=== PATIENT | female | born 1970 | race Caucasian/White ===

== ENCOUNTER 2018-01-05 09:31 | Emergency (ER) | payer BC ==
[2018-01-05] MEDS ORDERED: NORCO 5/325 MG (10:52)
[2018-01-05 10:53] LABS: Uric Acid 4.9 mg/dL (2.6-6.0)
[2018-01-05] MEDS: NORCO 5/325 MG PO (10:54)
== END 2018-01-05 12:18 | disposition home or self-care (01) ==
LOC: ED 09:31
CPT/HCPCS: 36415; 73562; 84550

== ENCOUNTER 2018-09-04 05:53 | Day surgery (SDC) | payer BC ==
[2018-09-04] MEDS ORDERED: DIPRIVAN 200 MG/20 ML IV ONE (05:54)
[2018-09-04] MEDS ORDERED: Lactated Ringers 1,000 ML IV SCH (06:30)
[2018-09-04 08:00] VITALS: O2SAT 97
[2018-09-04 08:13] VITALS: BP 108/60; PULSE 87
--- NOTE | 2018-09-04 08:45 | OP ---
SURGERY DATE/TIME: 09/04/2018 0700 PREOPERATIVE DIAGNOSIS: Father with colon cancer. POSTOPERATIVE DIAGNOSIS: Normal colon. PROCEDURE: Colonoscopy. SURGEON: Dr. Gomez. ANESTHESIA: MAC. Medications given by anesthesia department. HISTORY: The patient is a 48 year-old white female presenting now for colonoscopic evaluation. She reports that her father had colon cancer and of it in his early 60's and she also had a brother with colon polyps. The patient was felt the need to have endoscopic evaluation. She was appraised of the risks of the procedure including the risk of perforation, phlebitis, untoward reaction to medication, bleeding and missed lesions. The patient verbalized her understanding and desired to have the procedure performed. DESCRIPTION OF PROCEDURE: The patient was given the medications by the anesthesia department. She had continuous pulse oximetry, ECG monitoring, intermittent blood pressure monitoring and tidal CO2 monitoring during the examination. She was placed in the left lateral decubitus position. A digital rectal examination was performed and revealed normal anal sphincter tone and no masses. The flexible Olympus pediatric colonoscope was used to intubate the rectum. A view of the colon was developed sequentially to the cecum. Upon insertion and withdrawal, including a retroflex view in the rectum, no mucosal lesions were encountered. The scope was removed from the patient who tolerated the procedure well and was sent back to OP recovery in good condition. The prep was noted to be fair.
== END 2018-09-04 08:21 | disposition home or self-care (01) ==
LOC: SDC 05:53
PROVIDERS: ATTEND Family Medicine
DX: Z12.11 Encounter for screening for malignant neoplasm of colon (principal); Z80.0 Family history of malignant neoplasm of digestive organs; Z83.71 Family history of colonic polyps
CPT/HCPCS: J2704

== ENCOUNTER 2019-02-16 03:19 | Emergency (ER) | payer BC ==
--- NOTE | 2019-02-16 03:47 | ERPHSYRPT ---
- History of Present Illness Source: patient Exam Limitations: clinical condition Patient Subjective Stated Complaint: pt states, "I've had this back pain since Friday but it's getting worse and everytime I use my right side, it takes my breath." Triage Nursing Assessment: pt ambulated to rm 7, alert and oriented x3, cooperative. Pt c/o mid back pain on rt side, had this pain since Friday but it has gotten worse, to the point that it takes her breath. Pt states the pain radiates up and down her back. Pt does not remember doing anything to cause the pain. No bruising or edema noted to back. Lungs clear, heart tones reg, abd soft with active bs x4 quad, nontender. Timing/Duration: yesterday Method of Injury: unknown, other (slept with grandchild and woke with back pain) Quality: sharp, aching Back Pain Location: T-spine Severity of Pain-Max: severe Severity of Pain-Current: severe (Pt rates her pain a 9/10 pain) Modifying Factors: Improves With: movement (worsens with sitting forward) Associated Symptoms: muscle spasms, other (ith sitting up from a reclned position.) Previous symptoms: no prior history Hx Tetanus, Diphtheria Vaccination/Date Given: Yes Hx Influenza Vaccination/Date Given: No Hx Pneumococcal Vaccination/Date Given: No Immunizations Up to Date: Yes <ASAEL (ISIDRA Sierra)FARHANA - Last Filed: 02/16/19 07:18> <BOOM HARRISON - Last Filed: 02/16/19 07:54> - History of Present Illness Time Seen by Provider: 02/16/19 03:45 Physician History: Pt comes in with right midlateral right low thoracic back pain. Pt states that the pain has worsened when her grandchild slept in her bed and she slept holding the child and woke with back pain.Pt reporth the pain to be in the right flank. Pt rates the pain at a 9/10. Pt has no history of this same pain. (ASAEL (ISIDRA Y)FARHANA) Allergies/Adverse Reactions: Penicillins Allergy (Mild, Verified 09/04/18 06:04) Hives Home Medications: Atenolol 50 mg [Tenormin 50 mg] 50 mg PO DAILY 10/31/13 [History] Levothyroxine Sodium 112 Mcg [Synthroid 112 Mcg] 200 mcg PO DAILY 10/31/13 [History] Fluoxetine HCl [Prozac] 20 mg PO HS 04/26/15 [History] Pantoprazole 20 mg [Protonix 20MG Tablet] 40 mg PO DAILY 12/26/15 [History ] Liothyronine Sodium 10 mcg PO DAILY 09/02/18 [History] Warfarin Sodium [Jantoven] 8.5 mg PO DIRECTIONS UNKNOWN 09/02/18 [History] Gabapentin 100 mg PO HS 02/16/19 [History] - Review of Systems Constitutional: No Symptoms Eyes: No Symptoms Ears, Nose, & Throat: No Symptoms Respiratory: No Symptoms, Other (some worsening of pain on deep respiration) Cardiac: No Symptoms Abdominal/Gastrointestinal: No Symptoms Genitourinary Symptoms: No Symptoms Musculoskeletal: Back Pain, Myalgias Skin: No Rash, No Skin Lesions Neurological: No Symptoms, Headache, No Parasthesia Psychological: No Symptoms All Other Systems: Reviewed and Negative <ASAEL SANTOS Sierra)FARHANA - Last Filed: 02/16/19 07:18> - Past Medical History Pertinent Past Medical History: Yes Neurological History: Other ENT History: No Pertinent History Cardiac History: Hypertension Respiratory History: Sleep Apnea Endocrine Medical History: Other Musculoskeletal History: No Pertinent History GI Medical History: Gallbladder Disease History: Renal Disease, Other Psycho-Social History: Anxiety, Depression Other Medical History: numbness along R bunionectomy scar, thyroid CA with removal, mitral valve replacement 3 years ago. - Past Surgical History Past Surgical History: Yes Neuro Surgical History: No Pertinent History Cardiac: CABG, Other Respiratory: No Pertinent History Gastrointestinal: Cholecystectomy Genitourinary: Other Musculoskeletal: Orthopedic Surgery Female Surgical History: Section, Tubal Ligation Other Surgical History: valve replaced,kidney surgery,thyroid removed 2012 , sinus surgery, foot surgery-bunionectomy and ankle bone removed right foot , three yrs ago aortic valve replaced - Social History Smoking Status: Former smoker Exposure to second hand smoke: No Alcohol Use: None Drug Use: none Patient Lives Alone: No Significant Family History: no pertinent family hx - Female History Hx Last Menstrual Period: tubal and IUD Hx Now: No <[facility]EL SANTOS [facility] Becerra - Last Filed: 02/16/19 07:18> - Physical Exam General Appearance: no apparent distress, alert, obese Eye Exam: PERRL/EOMI Ears, Nose, Throat Exam: normal ENT inspection Neck Exam: normal inspection Respiratory Exam: normal breath sounds Cardiovascular Exam: regular rate/rhythm Gastrointestinal Exam: soft, normal bowel sounds, No tenderness Rectal Exam: not done Back Exam: normal inspection, CVA tenderness, decreased range of motion, muscle spasm, point tenderness, other (with sitting forward) Neurologic Exam: alert, oriented x 3, cooperative, sensation nml, No motor deficits, No confusion Skin Exam: normal color, warm, dry, No rash Lymphatic Exam: No adenopathy SpO2: 99 <ASAEL (ED PHY)FARHANA - Last Filed: 02/16/19 07:18> - Nursing Vital Signs Nursing Vital Signs: Initial Vital Signs Temperature 97.5 F 02/16/19 03:28 Pulse Rate 79 02/16/19 03:28 Respiratory Rate 18 02/16/19 03:28 Blood Pressure 116/83 02/16/19 03:28 O2 Sat by Pulse Oximetry 99 02/16/19 03:28 Pain Scale Pain Intensity [Right Back] 9 Pain Intensity 0 <ASAEL (ED PHY)FARHANA - Last Filed: 02/16/19 07:18> <BOOM HARRISON - Last Filed: 02/16/19 07:54> Ordered Tests: Active Orders 24 hr Category Date Time Status ABDOMEN AND PELVIS W/0 CONTRAS [CT] Stat Exams 02/16/19 05:53 Taken THORACIC SPINE (AP,LAT,SWIMM) Stat Exams 02/16/19 04:01 Taken CULTURE,URINE Stat Lab 02/16/19 05:19 Received UA W/RFX UR CULTURE Stat Lab 02/16/19 05:19 Completed Medication Summary Discontinued Medications Generic Name Dose Route Start Last Admin Trade Name Freq PRN Reason Stop Dose Admin Ketorolac Tromethamine 60 mg 02/16/19 03:53 02/16/19 04:01 Toradol 30 Mg Injection IM 02/16/19 03:54 60 mg STAT ONE Administration Ketorolac Tromethamine Confirm 02/16/19 03:58 Toradol 30 Mg Injection Administered 02/16/19 03:59 Dose 30 mg .ROUTE .STK-MED ONE Ketorolac Tromethamine Confirm 02/16/19 04:03 Toradol 30 Mg Injection Administered 02/16/19 04:04 Dose 30 mg .ROUTE .STK-MED ONE Orphenadrine Citrate 60 mg 02/16/19 03:54 02/16/19 04:02 Norflex 60 Mg/2 Ml IM 02/16/19 03:55 60 mg STAT ONE Administration Orphenadrine Citrate Confirm 02/16/19 03:58 Norflex 60 Mg/2 Ml Administered 02/16/19 03:59 Dose 60 mg .ROUTE .STK-MED ONE Lab/Rad Data: Laboratory Results 02/16/19 Range/Units 05:19 Urine Color YELLOW (YELLOW) Urine Appearance SLIGHTLY CLOUDY (CLEAR) Urine pH 5.0 (5-6) Ur Specific [place] 1.027 (1.005-1.025) Urine Protein NEGATIVE (Negative) Urine Ketones NEGATIVE (NEGATIVE) Urine Blood MODERATE (0-5) [place]/ul Urine Nitrite NEGATIVE (NEGATIVE) Urine Bilirubin NEGATIVE (NEGATIVE) Urine Urobilinogen NEGATIVE (0-1) mg/dL Ur Leukocyte Esterase NEGATIVE (NEGATIVE) Urine WBC (Auto) 3-5 (0-5) /HPF Urine RBC (Auto) 16-25 (0-2) /HPF U Epithel Cells (Auto) RARE (FEW) /HPF Urine Bacteria (Auto) FEW (NEGATIVE) /HPF Urine Mucus (Auto) SLIGHT (NEGATIVE) /HPF Urine Yeast (Budding) Rare (NEGATIVE) /HPF Urine Culture Reflexed YES (NO) Urine Glucose NEGATIVE (NEGATIVE) mg/dL - Progress Progress: improved <ASAEL (ED PHY)FARHANA - Last Filed: 02/16/19 07:18> - Progress Counseled pt/family regarding: lab results, diagnosis, need for follow-up, rad results <BOOM HARRISON - Last Filed: 02/16/19 07:54> - Progress Progress Note: 02/16/19 05:25 Pt's pain has improved froma a 9/10 to a 6/10 currently. mild right CVA tenderness that improved with toradol and norflex. Urine is negative on urinalysis except for + for blood. 02/16/19 05:47 (ASAEL (ED PHY)FARHANA) 02/16/19 07:49 ct abd/pelvis-enlarging right hepatic lobe lesion. d/w pt. (BOOM HARRISON) - Departure Critical Care Time: No <ASAEL (ED PHY)FARHANA - Last Filed: 02/16/19 07:18> - Departure Departure Disposition: Home Critical Care Time: No <BOOM HARRISON - Last Filed: 02/16/19 07:54> - Departure Clinical Impression: Thoracic back pain, Scoliosis, Liver lesion, right lobe Condition: Stable Referrals: GURVINDER PADILLA [Primary Care Provider] - Instructions: Upper Back Pain (DC), Scoliosis (DC) Additional Instructions: Do gentle stretching of your back muscles and normal movements. Do not lift items heavier than 20 lbs. Take the prescriptions given as directed and follow up with your primary care physician. since you are on warfarin, do not fill the toradol prescription. Plan of Treatment: Do gentle stretching of your back muscles and normal movements. Do not lift items heavier than 20 lbs. Take the prescriptions given as directed and follow up with your primary care physician. Prescriptions: Hydrocodone/APAP 5-325 Tab^^^ [[place] 5-325 Tablet^^^] 1 tab PO Q8H PRN PRN #6 tablet MDD 6 PRN Reason: Pain Ketorolac Tromethamine [Toradol] 10 mg PO Q8H PRN PRN #10 tablet PRN Reason: Muscle Spasms Cyclobenzaprine HCl 10 mg [Cyclobenzaprine 10 MG] 10 mg PO TID #10 tablet
[2019-02-16] MEDS ORDERED: TORAdol 30 mg Injection IM ONE (03:53)
[2019-02-16] MEDS ORDERED: Norflex 60 MG/2 ML IM ONE (03:54)
[2019-02-16] MEDS ORDERED: Norflex 60 MG/2 ML ONE (03:58)
[2019-02-16] MEDS ORDERED: TORAdol 30 mg Injection ONE ×2 (03:58→04:03)
[2019-02-16 05:34] LABS: Appearance SLIGHTLY CLOUDY (CLEAR); Bilirubin NEGATIVE (NEGATIVE); Blood MODERATE Ery/ul (0-5); Epithelial Cells RARE /HPF (FEW); Glucose NEGATIVE (NEGATIVE); Ketones NEGATIVE (NEGATIVE); Leukocyte Esterase NEGATIVE (NEGATIVE); Mucus SLIGHT /HPF (NEGATIVE); Nitrite NEGATIVE (NEGATIVE); Protein,Urine Dip NEGATIVE (Negative); Specific Gravity 1.027 (1.005-1.025); Urobilinogen NEGATIVE mg/dL (0-1)
[2019-02-16 05:35] LABS: Bacteria FEW /HPF (NEGATIVE); Budding Yeast Rare /HPF (NEGATIVE)
[2019-02-16] MEDS ORDERED: Hydromorphone 1 mg/ml Ampule IV ONE (07:55)
[2019-02-16] MEDS ORDERED: Hydromorphone 1 mg/ml Ampule ONE (08:00)
[2019-02-16] MEDS ORDERED: Hydromorphone 1 mg/ml Ampule IM ONE (08:07)
[2019-02-16 08:13] VITALS: BP 136/68; PULSE 70; O2SAT 96
--- NOTE | 2019-02-16 10:04 | XRAY ---
Indication: Thoracic pain. Comparison: CT thoracic spine January 02, 2014. AP/lateral thoracic spine demonstrates minimal dextroscoliosis centered at T7 and again minimal multilevel endplate spurring. No acute fracture, subluxation, or suspicious bony lesions. Incidental sternotomy wires from mitral valve replacement surgery and cholecystectomy clips. Impression: Nonacute thoracic spine with chronic features.
--- NOTE | 2019-02-16 10:07 | XRAY ---
Indication: Right flank and mid thoracic pain. Gross hematuria. Multiple contiguous axial images obtained through the abdomen and pelvis without contrast as ordered. Comparison: October 31, 2013. Lung bases demonstrate bibasilar atelectasis/scarring more than before. Also new tiny bibasilar effusions. Heart is not enlarged. Noncontrasted stomach and bowel loops appear nonobstructed. Normal appendix. Again mild scattered colonic fecal debris predominantly in the ascending and transverse colon. Uterus demonstrates new IUD in situ and 1.2 cm fundal calcified fibroid. Bilateral ovary cysts, largest on the right measuring 1.8 cm. Stable faint bilateral nephrocalcinosis and right extrarenal pelvis. No hydronephrosis or hydroureter. No free fluid/air. Inferior right lobe of the liver again demonstrates subtle oval noncalcified hypodense lesion measuring 3 cm in diameter, previously 2.5 cm. Lack of contrast precludes further characterization. Again previous cholecystectomy. Remaining liver, pancreas, spleen, adrenal glands, kidneys, ureters, bladder, uterus, and aorta appear unremarkable for noncontrast exam. Osseous structures intact again with minimal degenerative changes throughout the thoracolumbar spine and bilateral L5 spondylolysis without spondylolisthesis. Impression: 1. Slightly enlarging right lobe hepatic hypodense lesion. CT or MRI with contrast exam may yield further information. 2. New IUD in situ and calcified uterine fibroid. 3. Stable nonobstructing bilateral nephrocalcinosis and right extrarenal pelvis. 4. New tiny nonspecific bibasilar effusions. 5. Stable chronic bony findings. Comment: Preliminary interpretation was made by [facility]. No discrepancy. CT DI 23.55
== END 2019-02-16 08:53 | disposition home or self-care (01) ==
LOC: ED 03:19
DX: M54.6 Pain in thoracic spine (principal); M41.9 Scoliosis, unspecified; K76.9 Liver disease, unspecified; Z79.899 Other long term (current) drug therapy; I10 Essential (primary) hypertension
CPT/HCPCS: 72072; 74176; 81001; 87086; 96372; 99284; J1170; J1885; J2360

== ENCOUNTER 2020-06-23 06:01 | Day surgery (SDC) | payer BC ==
[2020-06-23] MEDS ORDERED: Lactated Ringers 1,000 ML IV SCH (06:30)
[2020-06-23] MEDS ORDERED: DIPRIVAN 200 MG/20 ML IV ONE ×2 (07:58→08:14)
[2020-06-23] MEDS ORDERED: Versed 2 MG/2 ML Injection ONE (07:58)
[2020-06-23] MEDS ORDERED: CLINDAMYCIN-D5W 900 MG/50 ML*** 900 MG/50 ML BAG IV ONE (08:13)
--- NOTE | 2020-06-23 08:46 | OP ---
SURGERY DATE/TIME: 06/22/2020 0802 PREOPERATIVE DIAGNOSIS: Mother with history of colon cancer. POSTOPERATIVE DIAGNOSIS: Normal colon. PROCEDURE: Colonoscopy. SURGEON: Dr. Gomez. ANESTHESIA: MAC. Medications given by anesthesia department. HISTORY: The patient is a 49 year-old white female presenting now for screening colonoscopy. The patient reports her mother had colon cancer at an early age. The patient is felt the need to have endoscopic evaluation. She was appraised of the risks of the procedure including the risk of perforation, phlebitis, untoward reaction to medication, bleeding and missed lesions. The patient verbalized her understanding and desired to have the procedure performed. DESCRIPTION OF PROCEDURE: The patient was given the medications by the anesthesia department. She had continuous pulse oximetry, ECG monitoring, intermittent blood pressure monitoring and tidal CO2 monitoring during the examination. She was placed in the left lateral decubitus position. A digital rectal examination was performed and revealed normal anal sphincter tone and no masses. The flexible Olympus pediatric colonoscope was used to intubate the rectum. A view of the colon was developed sequentially to the cecum as identified by the appendiceal orifice and ileocecal valve. Upon insertion and withdrawal, including a retroflex view in the rectum, no mucosal lesions were encountered. The scope was removed from the patient who tolerated the procedure well and was sent back to OP recovery in good condition. The prep was noted to be poor with semi-solid stool materials through mostly in the right side of the colon but also obscuring the colon wall in other areas as well. The patient did receive Clindamycin 900 mg IV during the procedure as prophylaxis for the patient's artificial heart valve.
[2020-06-23 09:26] VITALS: BP 116/64; PULSE 75; O2SAT 100
== END 2020-06-23 09:30 | disposition home or self-care (01) ==
LOC: SDC 06:01
PROVIDERS: ATTEND Family Medicine
DX: Z12.11 Encounter for screening for malignant neoplasm of colon (principal); Z80.0 Family history of malignant neoplasm of digestive organs
CPT/HCPCS: 84703; J2250; J2704

== ENCOUNTER 2021-03-11 11:35 | Emergency (ER) | payer BC ==
[2021-03-11] MEDS ORDERED: SUBLIMAZE 100 MCG/2 ML IV ONE (12:18)
[2021-03-11] MEDS ORDERED: Zofran 4 MG/2 ML VIAL IV ONE (12:18)
[2021-03-11] MEDS ORDERED: Sodium Chloride 0.9% 1000 ML 1,000 ML IV STA (12:18)
[2021-03-11 12:24] LABS: Absolute Neutrophil Ct (ANC) 3.32 (1.4-6.9); BASOPHIL % 0.2 % (0.0-0.4); Basophil (Absolute #) 0.01 (0-0.4); Eosinophil % 2.2 % (0.00-5.0); Eosinophil (Absolute #) 0.13 (0-0.5); Hematocrit 42.3 % (35-47); Hemoglobin 13.6 gm/dl (12.0-16.0); Lymphocyte (Absolute #) 2.03 (1.0-4.6); Lymphocytes % 34.8 % (24.0-44.0); Mean Cell Volume 95.7 fl (78-100); Mean Corpuscular Hemoglobin 30.8 pg (26-32); Mean Corpuscular Hgb Concent. 32.2 g/dl (32-36); Monocyte (Absolute #) 0.35 (0.0-1.3); Neutrophil % 56.8 % (36.0-66.0); Platelet Count 226 K/mm3 (150-450); Red Blood Count 4.42 M/mm3 (4.1-5.4); Red Cell Distribution Width 12.9 % (11.5-14.0); White Blood Count 5.8 K/mm3 (4.0-10.5)
[2021-03-11] MEDS ORDERED: Zofran 4 MG/2 ML VIAL ONE (12:24)
[2021-03-11] MEDS ORDERED: Sodium Chloride 0.9% 1000 ML 1,000 ML ONE (12:25)
[2021-03-11] MEDS ORDERED: SUBLIMAZE 100 MCG/2 ML ONE (12:25)
[2021-03-11 12:27] LABS: Appearance CLEAR (CLEAR); Bilirubin NEGATIVE (NEGATIVE); Blood SMALL Ery/ul (0-5); Glucose NEGATIVE (NEGATIVE); Ketones NEGATIVE (NEGATIVE); Leukocyte Esterase NEGATIVE (NEGATIVE); Nitrite NEGATIVE (NEGATIVE); Protein,Urine Dip NEGATIVE (Negative); Specific Gravity 1.013 (1.005-1.025); Urobilinogen NEGATIVE mg/dL (0-1)
[2021-03-11 12:29] LABS: ALBUMIN 3.9 g/dL (3.5-5.0); ALKALINE PHOSPHATASE 65 U/L (38-126); ANION GAP 10.1 MEQ/L (5-15); BLOOD UREA NITROGEN 10 mg/dL (7-17); CHLORIDE 104 mmol/L (98-107); Calcium 9.5 mg/dL (8.4-10.2); Carbon Dioxide 27 mmol/L (22-30); Creatinine 1 0.56 mg/dL (0.52-1.04); EST GLOMERULAR FILTRATION RATE > 60.0 ML/MIN; Glucose 139 mg/dL (74-106); LIPASE 155 U/L (23-300); Potassium 3.7 mmol/L (3.5-5.1); SGOT/AST 27 U/L (14-36); SGPT/ALT 22 U/L (0-35); SODIUM 137 mmol/L (137-145); Total Protein 7.1 g/dL (6.3-8.2)
--- NOTE | 2021-03-11 14:02 | ERPHSYRPT ---
- History of Present Illness Time Seen by Provider: 03/11/21 11:56 Historian: patient Exam Limitations: no limitations Patient Subjective Stated Complaint: Pt c/o of RLQ pain for the past week Triage Nursing Assessment: Pt brought self to the ER, vitals wnl, rates pain as 7/10, pain to RLQ with palpatation, states that it feels like someone is sq ueezing something, nausea, denies vomiting, pulses normal, skin n/w/d, doesn't appear to be in any distress Physician History: 50 years old female presented in the ER with chief complaint of right lower quadrant pain off and on for 1 week with progressive worsening, rates 7/10 intensity, sharp dull aching, aggravated with activity/palpation and better with resting. Denies any urinary symptoms. Does have mild nausea but no vomiting diarrhea or constipation. Does have history of cholecystectomy. No fever or chills reported. Timing/Duration: week(s) (1), intermittent, worse Quality: aching, dullness, sharpness Abdominal Pain Onset Location: RLQ Pain Radiation: no radiation Severity of Pain-Max: severe Severity of Pain-Current: moderate Modifying Factors: Improves With: rest. Worsens With: movement, palpation Associated Symptoms: nausea Previous symptoms: no prior history Allergies/Adverse Reactions: Penicillins Allergy (Mild, Verified 03/11/21 11:50) Hives Home Medications: Atenolol 50 mg [Tenormin 50 mg] 50 mg PO DAILY 10/31/13 [History] Levothyroxine Sodium 112 Mcg [Synthroid 112 Mcg] 0.2 mcg PO DAILY 10/31/13 [History] Pantoprazole 20 mg [Protonix 20MG Tablet] 40 mg PO DAILY 12/26/15 [History] Liothyronine Sodium 5 mcg PO TID 09/02/18 [History] Warfarin Sodium [Jantoven] 11 mg PO DAILY 09/02/18 [History] Aspirin 81 mg PO DAILY 06/16/20 [History] Hx Tetanus, Diphtheria Vaccination/Date Given: Yes Hx Influenza Vaccination/Date Given: No Hx Pneumococcal Vaccination/Date Given: No Travel Risk - International Travel Have you traveled outside of the country in past 3 weeks: No - Coronavirus Screening Are you exhibiting any of the following symptoms?: No Close contact with a COVID-19 positive Pt in past 14-21 Days: No - Vaccine Status Have you recieved a Covid-19 vaccination: No - Review of Systems Constitutional: No Symptoms Eyes: No Symptoms Ears, Nose, & Throat: No Symptoms Respiratory: No Symptoms Cardiac: No Symptoms Abdominal/Gastrointestinal: Abdominal Pain, Nausea Genitourinary Symptoms: No Symptoms Musculoskeletal: No Symptoms Skin: No Symptoms Neurological: No Symptoms Psychological: No Symptoms Endocrine: No Symptoms Hematologic/Lymphatic: No Symptoms - Past Medical History Pertinent Past Medical History: Yes Neurological History: Other ENT History: No Pertinent History Cardiac History: Hypertension Respiratory History: Sleep Apnea Endocrine Medical History: Other Musculoskeletal History: No Pertinent History GI Medical History: Gallbladder Disease History: Renal Disease, Other Psycho-Social History: Anxiety, Depression Other Medical History: Thyroid CA, Mitral valve replacement. - Past Surgical History Past Surgical History: Yes Neuro Surgical History: No Pertinent History Cardiac: CABG, Other Respiratory: No Pertinent History Gastrointestinal: Cholecystectomy Genitourinary: Other Musculoskeletal: Orthopedic Surgery Female Surgical History: Section, Tubal Ligation Other Surgical History: valve replaced,kidney surgery,thyroid removed 2012 ,sinus surgery, foot surgery-bunionectomy and ankle bone removed right foot , three yrs ago aortic valve replaced,colonoscopy - Social History Smoking Status: Former smoker Exposure to second hand smoke: No Alcohol Use: None Drug Use: none Patient Lives Alone: Yes Significant Family History: no pertinent family hx - Female History Hx Now: No (tubal) - Nursing Vital Signs Nursing Vital Signs: Initial Vital Signs Temperature 97.5 F 03/11/21 11:40 Pulse Rate 81 03/11/21 11:40 Blood Pressure 141/73 03/11/21 11:40 O2 Sat by Pulse Oximetry 99 03/11/21 11:40 Pain Scale Pain Intensity 7 - Physical Exam General Appearance: no apparent distress, alert Eye Exam: PERRL/EOMI, eyes nml inspection Ears, Nose, Throat Exam: normal ENT inspection, pharynx normal Neck Exam: normal inspection, supple, full range of motion Respiratory Exam: normal breath sounds, lungs clear Cardiovascular Exam: regular rate/rhythm, normal heart sounds Gastrointestinal/Abdomen Exam: soft, normal bowel sounds, tenderness (Right lower quadrant), No guarding, No rebound Back Exam: normal inspection, normal range of motion Extremity Exam: normal inspection, normal range of motion Neurologic Exam: alert, oriented x 3, cooperative Skin Exam: normal color SpO2 Interpretation: normal SpO2: 99 O2 Delivery: Room Air Ordered Tests: Active Orders 24 hr Category Date Time Status IV Insertion STAT Care 03/11/21 12:18 Active NPO (ED) STAT Care 03/11/21 12:18 Active ABDOMEN AND PELVIS W CONTRAST [CT] Stat Exams 03/11/21 12:19 Taken CBC W DIFF Stat Lab 03/11/21 11:55 Completed CMP Stat Lab 03/11/21 11:55 Completed HCG,QUALITATIVE URINE Stat Lab 03/11/21 12:23 Completed LIPASE Stat Lab 03/11/21 11:55 Completed UA W/RFX UR CULTURE Stat Lab 03/11/21 12:23 Completed Medication Summary Discontinued Medications Generic Name Dose Route Start Last Admin Trade Name Phoebe PRN Reason Stop Dose Admin Fentanyl Citrate 50 mcg 03/11/21 12:18 03/11/21 12:26 Fentanyl Citrate 100 Mcg/2 Ml* Vial IV 03/11/21 12:19 50 mcg STAT ONE Administration Fentanyl Citrate Confirm 03/11/21 12:25 Fentanyl Citrate 100 Mcg/2 Ml* Vial Administered 03/11/21 12:26 Dose 100 mcg .ROUTE .STK-MED ONE Sodium Chloride 1,000 mls @ 999 mls/hr 03/11/21 12:18 03/11/21 13:31 Sodium Chloride 0.9% 1000 Ml IV 03/11/21 13:18 Infused .Q1H1M STA Infusion Sodium Chloride Confirm 03/11/21 12:25 Sodium Chloride 0.9% 1000 Ml Administered 03/11/21 12:26 Dose 1,000 mls @ ud .ROUTE .STK-MED ONE Ondansetron HCl 4 mg 03/11/21 12:18 03/11/21 12:27 Ondansetron Hcl 4 Mg/2 Ml Vial IV 03/11/21 12:19 4 mg STAT ONE Administration Ondansetron HCl Confirm 03/11/21 12:24 Ondansetron Hcl 4 Mg/2 Ml Vial Administered 03/11/21 12:25 Dose 4 mg .ROUTE .STK-MED ONE Lab/Rad Data: Laboratory Result Diagrams 03/11/21 11:55 03/11/21 11:55 Laboratory Results 03/11/21 03/11/21 03/11/21 Range/Units 12:23 12:23 11:55 WBC (4.0-10.5) K/mm3 RBC (4.1-5.4) M/mm3 Hgb (12.0-16.0) gm/dl Hct (35-47) % MCV (78-100) fl MCH (26-32) pg MCHC (32-36) g/dl RDW (11.5-14.0) % Plt Count (150-450) K/mm3 MPV (7.5-11.0) fl Gran % (36.0-66.0) % Eos # (Auto) (0-0.5) Absolute Lymphs (auto) (1.0-4.6) Absolute Monos (auto) (0.0-1.3) Lymphocytes % (24.0-44.0) % Monocytes % (0.0-12.0) % Eosinophils % (0.00-5.0) % Basophils % (0.0-0.4) % Absolute Granulocytes (1.4-6.9) Basophils # (0-0.4) Sodium 137 (137-145) mmol/L Potassium 3.7 (3.5-5.1) mmol/L Chloride 104 (98-107) mmol/L Carbon Dioxide 27 (22-30) mmol/L Anion Gap 10.1 (5-15) MEQ/L BUN 10 (7-17) mg/dL Creatinine 0.56 (0.52-1.04) mg/dL Estimated GFR > 60.0 ML/MIN Glucose 139 H (74-106) mg/dL Calcium 9.5 (8.4-10.2) mg/dL Total Bilirubin 0.80 (0.2-1.3) mg/dL AST 27 (14-36) U/L ALT 22 (0-35) U/L Alkaline Phosphatase 65 (38-126) U/L Serum Total Protein 7.1 (6.3-8.2) g/dL Albumin 3.9 (3.5-5.0) g/dL Lipase 155 (23-300) U/L Urine Color YELLOW (YELLOW) Urine Appearance CLEAR (CLEAR) Urine pH 6.0 (5-6) Ur Specific [place] 1.013 (1.005-1.025) Urine Protein NEGATIVE (Negative) Urine Ketones NEGATIVE (NEGATIVE) Urine Blood SMALL (0-5) [place]/ul Urine Nitrite NEGATIVE (NEGATIVE) Urine Bilirubin NEGATIVE (NEGATIVE) Urine Urobilinogen NEGATIVE (0-1) mg/dL Ur Leukocyte Esterase NEGATIVE (NEGATIVE) Urine WBC (Auto) NONE (0-5) /HPF Urine RBC (Auto) NONE (0-2) /HPF U Epithel Cells (Auto) NONE (FEW) /HPF Urine Bacteria (Auto) NONE (NEGATIVE) /HPF Urine Culture Reflexed NO (NO) Urine Glucose NEGATIVE (NEGATIVE) mg/dL Urine HCG, Qual NEGATIVE (Negative) 03/11/21 Range/Units 11:55 WBC 5.8 (4.0-10.5) K/mm3 RBC 4.42 (4.1-5.4) M/mm3 Hgb 13.6 (12.0-16.0) gm/dl Hct 42.3 (35-47) % MCV 95.7 (78-100) fl MCH 30.8 (26-32) pg MCHC 32.2 (32-36) g/dl RDW 12.9 (11.5-14.0) % Plt Count 226 (150-450) K/mm3 MPV 10.0 (7.5-11.0) fl Gran % 56.8 (36.0-66.0) % Eos # (Auto) 0.13 (0-0.5) Absolute Lymphs (auto) 2.03 (1.0-4.6) Absolute Monos (auto) 0.35 (0.0-1.3) Lymphocytes % 34.8 (24.0-44.0) % Monocytes % 6.0 (0.0-12.0) % Eosinophils % 2.2 (0.00-5.0) % Basophils % 0.2 (0.0-0.4) % Absolute Granulocytes 3.32 (1.4-6.9) Basophils # 0.01 (0-0.4) Sodium (137-145) mmol/L Potassium (3.5-5.1) mmol/L Chloride (98-107) mmol/L Carbon Dioxide (22-30) mmol/L Anion Gap (5-15) MEQ/L BUN (7-17) mg/dL Creatinine (0.52-1.04) mg/dL Estimated GFR ML/MIN Glucose (74-106) mg/dL Calcium (8.4-10.2) mg/dL Total Bilirubin (0.2-1.3) mg/dL AST (14-36) U/L ALT (0-35) U/L Alkaline Phosphatase (38-126) U/L Serum Total Protein (6.3-8.2) g/dL Albumin (3.5-5.0) g/dL Lipase (23-300) U/L Urine Color (YELLOW) Urine Appearance (CLEAR) Urine pH (5-6) Ur Specific [place] (1.005-1.025) Urine Protein (Negative) Urine Ketones (NEGATIVE) Urine Blood (0-5) [place]/ul Urine Nitrite (NEGATIVE) Urine Bilirubin (NEGATIVE) Urine Urobilinogen (0-1) mg/dL Ur Leukocyte Esterase (NEGATIVE) Urine WBC (Auto) (0-5) /HPF Urine RBC (Auto) (0-2) /HPF U Epithel Cells (Auto) (FEW) /HPF Urine Bacteria (Auto) (NEGATIVE) /HPF Urine Culture Reflexed (NO) Urine Glucose (NEGATIVE) mg/dL Urine HCG, Qual (Negative) - Progress Progress: improved Progress Note: 03/11/21 14:00 She is given symptomatic treatment for pain. Has normal white count, grossly unremarkable chemistries. No UTI. CT negative for acute appendicitis, obstruction, perforation but does have right ovarian cyst which is probably the reason for her pain. Do not think she needs emergent ultrasound and does not seem purulent. Recommended outpatient primary care and SCIENTIFIC INFORMATICS ANALYST follow-up. Discussed signs symptoms of worsening needing return to ER which she seems understanding. Counseled pt/family regarding: lab results, diagnosis, need for follow-up, rad results - Departure Departure Disposition: Home Clinical Impression: Right lower quadrant pain, Right ovarian cyst Condition: Stable Critical Care Time: No Referrals: GURVINDER PADILLA [Primary Care Provider] - Follow up/PCP as directed Instructions: Ovarian Cysts, Acute Abdomen (Belly Pain), Adult (DC) Additional Instructions: take Tylenol for pain as needed, return to ER for any worsening pain/fever or intractable vomiting. Follow-up with your SCIENTIFIC INFORMATICS ANALYST for reevaluation of ovarian cyst.
--- NOTE | 2021-03-11 18:36 | XRAY ---
Indication: Right lower quadrant pain. Multiple contiguous axial images obtained through the abdomen and pelvis using 80 cc Isovue 370 contrast. Comparison: February 16, 2019. Lung bases are clear. Heart not enlarged. Noncontrasted stomach and bowel loops appear nonobstructed. Normal appendix. Again previous cholecystectomy. Inferior right lobe of the liver demonstrates a 3.6 cm hemangioma, indeterminate on previous noncontrasted exam. No free fluid/air. Uterus again demonstrates IUD in situ and fundal calcified fibroid. Remaining liver, pancreas, spleen, adrenal glands, kidneys, ureters, bladder, uterus, and aorta appear unremarkable. No pathologic retroperitoneal lymphadenopathy. Osseous structures intact again with L5 spondylolysis without spondylolisthesis. Impression: 1. Again incidental hepatic hemangioma, uterine fundal calcified fibroid, IUD in situ, and L5 spondylolysis without spondylolisthesis. 2. Remaining CT abdomen/pelvis with contrast exam is negative. Comment: Preliminary interpretation may by [facility]. No critical discrepancy.
== END 2021-03-11 14:18 | disposition home or self-care (01) ==
LOC: ED 11:35
DX: R10.31 Right lower quadrant pain (principal); N83.201 Unspecified ovarian cyst, right side
CPT/HCPCS: 36415; 74177; 80053; 81001; 83690; 84703; 85025; 96360; 96374; 96375; 99284; J2405; J3010

== ENCOUNTER 2022-09-16 02:17 | Emergency (ER) | payer BC ==
[2022-09-16] MEDS ORDERED: Zofran 4 MG/2 ML VIAL IV ONE (02:40)
[2022-09-16] MEDS ORDERED: MORPHINE SULFATE 4 MG INJ IV ONE ×2 (02:40→04:49)
[2022-09-16] MEDS ORDERED: Sodium Chloride 0.9% 1000 ML 1,000 ML IV STA (02:40)
[2022-09-16] MEDS ORDERED: MORPHINE SULFATE 4 MG INJ ONE ×2 (02:46→04:45)
[2022-09-16] MEDS ORDERED: Zofran 4 MG/2 ML VIAL ONE (02:46)
[2022-09-16] MEDS ORDERED: Sodium Chloride 0.9% 1000 ML 1,000 ML ONE (02:46)
[2022-09-16 02:52] LABS: Appearance Clear (Clear); Bacteria None Seen /HPF (None Seen); Bilirubin Negative (Negative); Blood Moderate (Negative); Epithelial Cells None Seen /HPF (None Seen); Glucose, Urine Negative (Negative); Hyaline Casts NONE SEEN /LPF (0-2); Ketones Negative (Negative); Leukocyte Esterase Negative (Negative); Nitrite Negative (Negative); Ph 5.5 (4.6-8.0); Protein,Urine Dip Negative (Negative); Urobilinogen 0.2 mg/dL (0.2); WBC 0-2 /HPF (0-5)
--- NOTE | 2022-09-16 02:57 | ERPHSYRPT ---
- History of Present Illness Time Seen by Provider: 09/16/22 02:40 Historian: patient Exam Limitations: no limitations Patient Subjective Stated Complaint: pt states "2-3 days ago I knew I was getting a kidney infection. I called [facility] on Friday and she prescribed levaq uin and I have taken it for 2 days and the pain is not getting any better" Triage Nursing Assessment: pt ambulated into room 8 independently with slow steady gait after standing on scale for weight acquisition. pt is alert and oriented times three, able to speak in complete sentences, able to move all extremities, with resp even and unlabored. she has facial grimace that increases with movement and she is holding her left side/ back. Physician History: 52 years old female presented in the ER with chief complaint of left flank pain for the last 2 days with progressive worsening. Patient reports associated nausea but no vomiting. Moderate to severe sharp pain in the left flank with radiation to the groin with associated dysuria, increased frequency but no urgency or hematuria. Reports having similar symptoms in the past as well with UTI. Denies any history of kidney stones. No fever or chills reported. Allergies/Adverse Reactions: Penicillins Allergy (Mild, Verified 02/20/22 14:34) Hives Home Medications: Atenolol 50 mg [Tenormin 50 mg] 50 mg PO DAILY 10/31/13 [History] Levothyroxine Sodium 112 Mcg [Synthroid 112 Mcg] 137 mcg PO DAILY 10/31/13 [History] Pantoprazole 20 mg [Protonix 20MG Tablet] 40 mg PO DAILY 12/26/15 [History] Warfarin Sodium [Jantoven] 11 mg PO DAILY 09/02/18 [History] Aspirin 81 mg PO DAILY 06/16/20 [History] Levofloxacin [Levofloxacin 250MG Tablet] 500 mg PO DAILY 09/16/22 [History] Hx Tetanus, Diphtheria Vaccination/Date Given: Yes Hx Influenza Vaccination/Date Given: No Hx Pneumococcal Vaccination/Date Given: No Immunizations Up to Date: Yes Travel Risk - International Travel Have you traveled outside of the country in past 3 weeks: No - Coronavirus Screening Are you exhibiting any of the following symptoms?: No Close contact with a COVID-19 positive Pt in past 14-21 Days: No - Vaccine Status Have you recieved a Covid-19 vaccination: No - Review of Systems Constitutional: No Symptoms Ears, Nose, & Throat: No Symptoms Respiratory: No Symptoms Cardiac: No Symptoms Abdominal/Gastrointestinal: Abdominal Pain, Nausea Genitourinary Symptoms: Dysuria, Frequency Musculoskeletal: No Symptoms Skin: No Symptoms Neurological: No Symptoms Psychological: No Symptoms Hematologic/Lymphatic: No Symptoms - Past Medical History Pertinent Past Medical History: Yes Neurological History: Other ENT History: No Pertinent History Cardiac History: Hypertension Respiratory History: Sleep Apnea Endocrine Medical History: Other Musculoskeletal History: No Pertinent History GI Medical History: Gallbladder Disease History: Renal Disease, Other Psycho-Social History: Depression, Anxiety Other Medical History: Thyroid CA, Mitral valve replacement. - Past Surgical History Past Surgical History: Yes Neuro Surgical History: No Pertinent History Cardiac: Valve Replacement, Other Respiratory: No Pertinent History Gastrointestinal: Cholecystectomy Genitourinary: Other Musculoskeletal: Orthopedic Surgery Female Surgical History: Tubal Ligation, Section Other Surgical History: valve replaced,kidney surgery,thyroid removed 2012 ,sinus surgery, foot surgery-bunionectomy and ankle bone removed right foot , three yrs ago aortic valve replaced,colonoscopy - Social History Smoking Status: Former smoker Exposure to second hand smoke: No Alcohol Use: None Drug Use: none Patient Lives Alone: No Significant Family History: no pertinent family hx - Nursing Vital Signs Nursing Vital Signs: Initial Vital Signs Temperature 98.2 F 09/16/22 02:35 Pulse Rate 85 09/16/22 02:35 Respiratory Rate 20 09/16/22 02:35 Blood Pressure 111/75 09/16/22 02:35 O2 Sat by Pulse Oximetry 98 09/16/22 02:35 Pain Scale Pain Intensity 7 - Physical Exam General Appearance: no apparent distress, alert Eye Exam: PERRL/EOMI Ears, Nose, Throat Exam: normal ENT inspection Neck Exam: normal inspection, supple, full range of motion Respiratory Exam: normal breath sounds, lungs clear Cardiovascular Exam: regular rate/rhythm, normal heart sounds Gastrointestinal/Abdomen Exam: soft, normal bowel sounds, tenderness (Left flank), guarding Back Exam: normal inspection, normal range of motion, CVA tenderness (Left side) Extremity Exam: normal inspection Neurologic Exam: alert, oriented x 3, cooperative Skin Exam: normal color SpO2 Interpretation: normal SpO2: 98 O2 Delivery: Room Air Ordered Tests: Active Orders 24 hr Category Date Time Status IV Insertion STAT Care 09/16/22 02:40 Completed NPO (ED) STAT Care 09/16/22 02:40 Completed ABDOMEN AND PELVIS W/0 CONTRAS [CT] Stat Exams 09/16/22 02:41 Taken CBC W DIFF Stat Lab 09/16/22 03:01 Completed CMP Stat Lab 09/16/22 03:01 Completed LIPASE Stat Lab 09/16/22 03:01 Completed UA W/RFX UR CULTURE Stat Lab 09/16/22 02:41 Completed Medication Summary Discontinued Medications Generic Name Dose Route Start Last Admin Trade Name Freq PRN Reason Stop Dose Admin Sodium Chloride 1,000 mls @ 999 mls/hr 09/16/22 02:40 09/16/22 05:31 Sodium Chloride 0.9% 1000 Ml IV 09/16/22 03:40 Infused .Q1H1M STA Infusion Sodium Chloride Confirm 09/16/22 02:46 Sodium Chloride 0.9% 1000 Ml Administered 09/16/22 02:47 Dose 1,000 mls @ ud .ROUTE .STK-MED ONE Metoclopramide HCl Confirm 09/16/22 04:45 Metoclopramide Hcl 10 Mg/2 Ml Vial Administered 09/16/22 04:46 Dose 10 mg .ROUTE .STK-MED ONE Metoclopramide HCl 10 mg 09/16/22 04:49 09/16/22 04:49 Metoclopramide Hcl 10 Mg/2 Ml Vial IV 09/16/22 04:50 10 mg STAT ONE Administration Morphine Sulfate 4 mg 09/16/22 02:40 09/16/22 02:46 Morphine Sulfate 4 Mg/Ml Injection IV 09/16/22 02:41 4 mg STAT ONE Administration Morphine Sulfate Confirm 09/16/22 02:46 Morphine Sulfate 4 Mg/Ml Injection Administered 09/16/22 02:47 Dose 4 mg .ROUTE .STK-MED ONE Morphine Sulfate Confirm 09/16/22 04:45 Morphine Sulfate 4 Mg/Ml Injection Administered 09/16/22 04:46 Dose 4 mg .ROUTE .STK-MED ONE Morphine Sulfate 4 mg 09/16/22 04:49 09/16/22 04:49 Morphine Sulfate 4 Mg/Ml Injection IV 09/16/22 04:50 4 mg STAT ONE Administration Ondansetron HCl 4 mg 09/16/22 02:40 09/16/22 02:47 Ondansetron Hcl 4 Mg/2 Ml Vial IV 09/16/22 02:41 4 mg STAT ONE Administration Ondansetron HCl Confirm 09/16/22 02:46 Ondansetron Hcl 4 Mg/2 Ml Vial Administered 09/16/22 02:47 Dose 4 mg .ROUTE .K-MED ONE Lab/Rad Data: Laboratory Result Diagrams 09/16/22 03:01 09/16/22 03:01 Laboratory Results 09/16/22 09/16/22 09/16/22 Range/Units 03:01 03:01 02:41 WBC 4.6 (4.0-10.5) x10^3/uL RBC 4.19 (4.1-5.4) x10^6/uL Hgb 12.6 (12.0-16.0) g/dL Hct 39.7 (35-47) % MCV 94.7 (78-100) fL MCH 30.1 (26-32) pg MCHC 31.7 L (32-36) g/dL RDW 12.9 (11.5-14.0) % Plt Count 194 (150-450) x10^3/uL MPV 9.4 (7.5-11.0) fL Gran % 44.5 (36.0-66.0) % Immature Gran % (Auto) 0.2 (0.00-0.4) % Nucleat RBC Rel Count 0.0 (0.00-0.1) % Eos # (Auto) 0.13 (0-0.5) x10^3/uL Immature Gran # (Auto) 0.01 (0.00-0.03) x10^3u/L Absolute Lymphs (auto) 1.89 (1.0-4.6) x10^3/uL Absolute Monos (auto) 0.49 (0.0-1.3) x10^3/uL Absolute Nucleated RBC 0.00 (0.00-0.01) x10^3u/L Lymphocytes % 41.0 (24.0-44.0) % Monocytes % 10.6 (0.0-12.0) % Eosinophils % 2.8 (0.00-5.0) % Basophils % 0.9 (0.0-0.4) % Absolute Granulocytes 2.05 (1.4-6.9) x10^3/uL Basophils # 0.04 (0-0.4) x10^3/uL Sodium 140 (137-145) mmol/L Potassium 3.9 (3.5-5.1) mmol/L Chloride 104 (98-107) mmol/L Carbon Dioxide 28 (22-30) mmol/L Anion Gap 11.5 (5-15) MEQ/L BUN 14 (7-17) mg/dL Creatinine 0.62 (0.52-1.04) mg/dL Estimated GFR > 60.0 ML/MIN Glucose 113 H (74-106) mg/dL Calcium 8.6 (8.4-10.2) mg/dL Total Bilirubin 0.40 (0.2-1.3) mg/dL AST 29 (14-36) U/L ALT 26 (0-35) U/L Alkaline Phosphatase 65 (38-126) U/L Serum Total Protein 7.2 (6.3-8.2) g/dL Albumin 3.8 (3.5-5.0) g/dL Lipase 180 (23-300) U/L Urine Color Yellow (Yellow) Urine Appearance Clear (Clear) Urine pH 5.5 (4.6-8.0) Ur Specific [place] 1.020 (1.005-1.030) Urine Protein Negative (Negative) Urine Glucose (UA) Negative (Negative) mg/dL Urine Ketones Negative (Negative) Urine Blood Moderate A (Negative) Urine Nitrite Negative (Negative) Urine Bilirubin Negative (Negative) Urine Urobilinogen 0.2 (0.2) mg/dL Ur Leukocyte Esterase Negative (Negative) U Hyaline Cast (Auto) NONE SEEN (0-2) /LPF Urine Microscopic RBC 11-20 A (0-5) /HPF Urine Microscopic WBC 0-2 (0-5) /HPF Ur Epithelial Cells None Seen (None Seen) /HPF Urine Bacteria None Seen (None Seen) /HPF Urine Culture Reflexed NO (NO) - Progress Progress: improved Progress Note: 09/16/22 05:35 52 years old is evaluated for left flank pain for couple of days with progressive worsening with associated nausea and some urinary complaints. She is given fluids and symptomatic treatment for pain, on reevaluation feeling better. Work-up showed normal white count, fairly unremarkable chemistries and renal function with. Patient has no UTI. CT abdomen pelvis did not reveal any ureteral lithiasis, obstruction, pyelonephritis, colitis/diverticulitis etc. Patient does have a right-sided ovarian cyst which she is advised to follow-up outpatient for further evaluation. She has some blood in the urine and it is quite possible she probably passed a stone recently. Recommended supportive care and outpatient follow-up. Discussed signs symptoms of worsening needing return to ER which she seems understanding. Counseled pt/family regarding: lab results, diagnosis, need for follow-up, rad results Medical Desision Making - Diagnostic Testing Diagnostic test were ordered, analyzed, and reviewed by me: Yes Radiological Interpretation: Reviewed by me, Teleradiologist Report - Risk of complications The pt has a mod risk of morbidity or mortality based on: Need for prescription drug management - Departure Departure Disposition: Home Clinical Impression: Left flank pain, Right ovarian cyst Condition: Stable Critical Care Time: No Referrals: [facility] [Primary Care Provider] - Follow up with PCP 1 day Instructions: Severe Abdominal Pain, Adult (DC) Additional Instructions: Take Tylenol as needed. Drink plenty of fluids. Well-hydrated. Follow-up with primary care for reevaluation and may need pulmonary cyst. Return to ER tractable pain nausea vomiting
[2022-09-16 03:01] LABS: ADD URINE CULTURE? NO (NO)
[2022-09-16 03:04] LABS: Absolute Neutrophil Ct (ANC) 2.05 x10^3/uL (1.4-6.9); BASOPHIL % 0.9 % (0.0-0.4); Basophil (Absolute #) 0.04 x10^3/uL (0-0.4); Eosinophil % 2.8 % (0.00-5.0); Eosinophil (Absolute #) 0.13 x10^3/uL (0-0.5); Hematocrit 39.7 % (35-47); Hemoglobin 12.6 g/dL (12.0-16.0); IMMATURE GRAN # 0.01 x10^3u/L (0.00-0.03); IMMATURE GRAN % 0.2 % (0.00-0.4); Lymphocyte (Absolute #) 1.89 x10^3/uL (1.0-4.6); Mean Cell Volume 94.7 fL (78-100); Mean Corpuscular Hemoglobin 30.1 pg (26-32); Mean Corpuscular Hgb Concent. 31.7 g/dL (32-36); Mean Platelet Volume 9.4 fL (7.5-11.0); Monocyte (Absolute #) 0.49 x10^3/uL (0.0-1.3); Monocytes % 10.6 % (0.0-12.0); Neutrophil % 44.5 % (36.0-66.0); Platelet Count 194 x10^3/uL (150-450); Red Blood Count 4.19 x10^6/uL (4.1-5.4); Red Cell Distribution Width 12.9 % (11.5-14.0); White Blood Count 4.6 x10^3/uL (4.0-10.5)
[2022-09-16 03:17] LABS: ALBUMIN 3.8 g/dL (3.5-5.0); ALKALINE PHOSPHATASE 65 U/L (38-126); ANION GAP 11.5 MEQ/L (5-15); BLOOD UREA NITROGEN 14 mg/dL (7-17); CHLORIDE 104 mmol/L (98-107); Calcium 8.6 mg/dL (8.4-10.2); Carbon Dioxide 28 mmol/L (22-30); Creatinine 1 0.62 mg/dL (0.52-1.04); EST GLOMERULAR FILTRATION RATE > 60.0 ML/MIN; Glucose 113 mg/dL (74-106); LIPASE 180 U/L (23-300); Potassium 3.9 mmol/L (3.5-5.1); SGOT/AST 29 U/L (14-36); SGPT/ALT 26 U/L (0-35); SODIUM 140 mmol/L (137-145); Total Protein 7.2 g/dL (6.3-8.2)
[2022-09-16] MEDS ORDERED: Reglan 10 MG/2 ML ONE (04:45)
[2022-09-16] MEDS ORDERED: Reglan 10 MG/2 ML IV ONE (04:49)
[2022-09-16 05:06] VITALS: BP 116/79; PULSE 68
[2022-09-16 05:37] VITALS: O2SAT 98
--- NOTE | 2022-09-16 15:04 | XRAY ---
CLINICAL HISTORY:left flank pain COMPARISON:02/16/2019. TECHNIQUES:Contiguous axial images without IV contrast were obtained through the abdomen. Coronal and sagittal reformat images were also obtained. Images were reviewed in soft tissue and bone window settings. CTDI: 18.59 mGy, DLP: 956.41 mGy.cm. FINDINGS: (Parenchymal organ evaluation is suboptimal within the limitation of non-contrast study):. The visualized portions of the lungs are normal in appearance. The visualized portion of the heart is normal in size without pericardial effusion. The abdominal aorta demonstrates no evidence of focal aneurysmal dilatation or dissection. The liver is normal in size, contour, and attenuation characteristics. Redemonstration of subcapsular right hepatic lobe low-attenuation lesion measuring approximately 3.2 x 3 mm in size. This appears grossly unchanged.No intrahepatic ductal dilatation is seen. There is no evidence of hepatic and portal vein disorders. The gallbladder is removed. Metallic clips are noted in the gallbladder fossa. The common bile duct is normal in appearance. The spleen and pancreas are normal contour and attenuation characteristics without focal parenchymal lesions. The adrenals are normal in size and no mass lesion is detected. Bilateral kidneys are normal in size, shape, and configuration. There is no evidence of renal mass. Redemonstration of the extrarenal pelvis on the right side with an abrupt transition between the renal pelvis which appears ballooned and the proximal ureter, raising the possibility of PUJ obstruction. However, this appears grossly unchanged from prior CT. No hydronephrosis, katja-nephric stranding, or radio-opaque calculi are visualized. The ureters are normal in course and caliber, without any filling defects. The urinary bladder is unremarkable. The uterus is normal in size. A calcified fibroid is noted, measuring 1.5 cm. There is IUD in the endometrial cavity. Hypodense area in the right ovary, measuring approximately 3 x 2.2 cm in size, suggestive of the cyst. Sonographic correlation is advised. This appears slightly more conspicuous on the current examination. The stomach and esophagogastric junction are unremarkable. The colon loops show diverticula without signs of diverticulitis. Otherwise, the colon and other small bowel loops are normal in appearance and without wall thickening or inflammatory change. No sign of appendicitis. No intraperitoneal free fluid or air is visualized. No pathologic lymphadenopathy is seen. The lumbar spine shows degenerative changes. No soft tissue abnormalities. IMPRESSION: No urolithiasis or obstructive uropathy. Hypodense area in the right ovary, measuring approximately 3 x 2.2 cm in size, suggestive of a cyst. Sonographic correlation is advised. This appears slightly more conspicuous on the current examination. Redemonstration of subcapsular right hepatic lobe low-attenuation lesion measuring approximately 3.2 x 3 mm in size. This appears grossly unchanged. Limited evaluation is possible as this is an unenhanced examination. Redemonstration of calcified uterine fibroid. IUD in place. Degenerative changes of the lumbar spine. Electronically Signed by: Cecy Shelton MD. (09/16/2022 03:01:25 [employer])
== END 2022-09-16 05:47 | disposition home or self-care (01) ==
LOC: ED 02:17
DX: N83.201 Unspecified ovarian cyst, right side (principal); R10.9 Unspecified abdominal pain; R11.0 Nausea; R10.2 Pelvic and perineal pain; R30.0 Dysuria; I10 Essential (primary) hypertension; Z79.01 Long term (current) use of anticoagulants; Z79.899 Other long term (current) drug therapy; Z28.310 Unvaccinated for COVID-19
CPT/HCPCS: 36000; 36415; 74176; 80053; 81001; 83690; 85025; 96360; 96361; 96374; 96375; 96376; 99284; J2270; J2405